=== PATIENT | male | born 1980 | race Caucasian/White ===

== ENCOUNTER 2016-11-15 11:19 | Inpatient (IN) | payer OTHER, MEDICAID ==
--- NOTE | 2016-11-15 12:02 | EDPHY ---
H & P HPI/ROS: CHIEF COMPLAINT: Altered speech HISTORY OF PRESENT ILLNESS: The patient is a 36-year-old male with reported personality disorder who presents to the emergency department with altered speech. Per the patient's , over the past week he has had periods of "distraction." He has been less talkative than normal and staring off into space. This morning at around 7:30 a.m. she noticed that he had difficulty finding words. He is normally quite talkative and this was normal. They went down to [place] to a conference. While sitting in the conference patient had difficulty writing. They drove back to [place] and the patient's brought him to [facility]. The patient states he is feeling fine. He does not feel as though he has a speech abnormality. He has no complaints of headache or neck pain. No recent fevers or chills. No trauma. No new medications. REVIEW OF SYSTEMS: My complete review of systems is negative except as mentioned in the HPI. Past Medical/Surgical History: Personality disorder Past surgical history: Denies Social history: The patient denies drug or alcohol use. The patient is . Smoking Status: Current every day smoker Physical Exam: Vitals noted GENERAL: Well-appearing, in no acute distress, alert. HEENT: Eyes normal to inspection, normal pharynx, no signs of dehydration. NECK: No thyromegaly, no lymphadenopathy, supple. RESPIRATORY: Clear to auscultation bilaterally, no rales, rhonchi or wheezing. CVS: Regular rate and rhythm, no rubs, murmurs, or gallops. ABDOMEN: Soft, nontender, nondistended, no organomegaly. BACK: Normal to inspection, no CVA tenderness. SKIN: Normal color, no rash, warm, dry. No pallor. EXTREMITIES: No pedal edema, no calf tenderness, no Homans sign or cords, no joint swelling. NEURO/PSYCH: Higher functions: Alert and Oriented x3. Slightly slow speech. He has some word -finding difficulties. He is able to articulate words well. He does not know his address or the secretary to the vice president. He is able to name objects. Normal mood and affect. Cranial nerves: Normal as tested. Cerebellar: Normal as tested. Good finger to nose, good [id number], normal gait. Peripheral exam: Normal motor exam. Normal sensation. Normal reflexes. NIHSS: 1 Best language: 1 Dysarthria: 0 Constitutional: Initial Vital Signs Temperature (C) 36.3 C 11/15/16 11:21 Heart Rate 77 11/15/16 11:21 Respiratory Rate 16 11/15/16 11:21 Blood Pressure 155/90 H 11/15/16 11:21 O2 Sat (%) 99 11/15/16 11:21 O2 Delivery Mode Room Air Allergies/Adverse Reactions: cefaclor [From Ceclor] Allergy (Verified 01/25/10 20:47) Home Medications: Medication Instructions Recorded [place] 01/25/10 Medical Decision Making - Diagnostics EKG Interpretation: EKG shows normal sinus rhythm, normal rate, normal axis, normal intervals. There are no ST or T-wave abnormalities. EKG is normal as interpreted by me. Imaging Results: Imaging Impressions Head CT 11/15/16 12:06 Impression: 1. No significant intracranial abnormality seen. Findings discussed with Carlita Guaman M.D. at 1211 hour, 11/15/2016. Head CTA 11/15/16 12:10 Impression: Normal CT angiogram of the neck. Normal CT angiogram of the [place], as detailed above. Note: All calculations were performed using NASCET criteria. Findings discussed with Carlita Guaman M.D. at 13:28 hour, 11/15/2016. Neck CTA 11/15/16 12:10 Impression: Normal CT angiogram of the neck. Normal CT angiogram of the [place], as detailed above. Note: All calculations were performed using NASCET criteria. Findings discussed with Carlita Guaman M.D. at 13:28 hour, 11/15/2016. ED Course/Re-evaluation: Patient arrived to the emergency department and was brought back to room 11. Patient was initially seen by the PA. After the PA performed his initial evaluation he came and informed me of the patient's presentation. At that time I went in assumed care of the patient and performed my evaluation. After evaluating the patient a stroke alert was called. The timing of onset of the patient's symptoms are confusing. The patient's states that he started acting normal 1 week ago. He was having long periods where he was distracted lost and thought. She 1st noticed word-finding difficulty at 7:30 a.m. this morning. The patient informed me in the emergency department that he had personality disorder. His did not know of this condition. She states they have been for 5 years. At baseline he is talkative and acts normal An IV was placed. Laboratory studies were obtained. CT was ordered. CT of the head without contrast: Please refer the dictated report by Dr. Guidry. No acute disease. Patient was evaluated by [facility] Neurology. Dr. Sanders felt he was not a candidate for tPA. Time of onset of symptoms was unclear. I rechecked the patient. He had no new focal neurologic deficits. His CT Angio of the head neck were ordered. CT angio head and neck: Please refer the dictated report. No acute disease noted. I discussed the case with Neurology Dr. Nixon. He recommended MRI of the brain. 1405: I repeated the patient's NIHSS. He still has a score of 1 for mild to moderate aphasia. I discussed case with the hospitalist service, Dr. Christian. The patient will be admitted for further observation. MRI is pending. Differential Diagnosis: My differential includes but is not limited to ischemic CVA, hemorrhagic CVA, dissection, aneurysm, electrolyte abnormality, sugar abnormality, dehydration, psychiatric disorder - Data Points Laboratory Results: Laboratory Results 11/15/16 12:00 11/15/16 12:00 11/15/16 11/15/16 11/15/16 12:04 12:00 12:00 WBC RBC Hgb POC Hgb 17.0 gm/dL gm/dL (14.5-17.3) Hct POC Hct 50 % % (42.8-50.6) MCV MCH MCHC RDW Plt Count MPV Neut % (Auto) Lymph % (Auto) [place] % (Auto) Eos % (Auto) Baso % (Auto) Nucleat RBC Rel Count Absolute Neuts (auto) Absolute Lymphs (auto) Absolute Monos (auto) Absolute Eos (auto) Absolute Basos (auto) Absolute Nucleated RBC Immature Gran % Immature Gran # PT 13.3 SEC SEC (12.0-15.0) INR 1.02 (0.83-1.16) APTT 27.8 SEC SEC (23.0-38.0) POC Sodium 143 mEq/L mEq/L (134-144) Sodium 140 mEq/L mEq/L (134-144) POC Potassium 4.0 mEq/L mEq/L (3.3-5.0) Potassium 4.2 mEq/L mEq/L (3.5-5.2) POC Chloride 105 mEq/L mEq/L (96-108) Chloride 104 mEq/L mEq/L (97-110) Carbon Dioxide 23 mEq/l mEq/l (22-31) Anion Gap 13 mEq/L mEq/L (8-16) POC BUN 12 mg/dL mg/dL (7-23) BUN 12 mg/dL mg/dL (7-23) Creatinine 0.9 mg/dL mg/dL (0.7-1.3) POC Creatinine 0.9 mg/dL mg/dL (0.8-1.5) Estimated GFR > 60 Glucose 87 mg/dL mg/dL (70-100) POC Glucose 89 mg/dL mg/dL (70-100) Calcium 10.0 mg/dL mg/dL (8.5-10.4) Troponin I < 0.012 ng/mL ng/mL (0-0.034) 11/15/16 12:00 WBC 4.87 10^3/uL 10^3/uL (3.80-9.50) RBC 5.47 10^6/uL 10^6/uL (4.40-6.38) Hgb 15.6 g/dL g/dL (13.7-17.5) POC Hgb Hct 47.1 % % (40.0-51.0) POC Hct MCV 86.1 fL fL (81.5-99.8) MCH 28.5 pg pg (27.9-34.1) MCHC 33.1 g/dL g/dL (32.4-36.7) RDW 13.5 % % (11.5-15.2) Plt Count 216 10^3/uL 10^3/uL (150-400) MPV 10.2 fL fL (8.7-11.7) Neut % (Auto) 60.4 % % (39.3-74.2) Lymph % (Auto) 31.2 % % (15.0-45.0) [place] % (Auto) 6.8 % % (4.5-13.0) Eos % (Auto) 0.8 % % (0.6-7.6) Baso % (Auto) 0.6 % % (0.3-1.7) Nucleat RBC Rel Count 0.0 % % (0.0-0.2) Absolute Neuts (auto) 2.94 10^3/uL 10^3/uL (1.70-6.50) Absolute Lymphs (auto) 1.52 10^3/uL 10^3/uL (1.00-3.00) Absolute Monos (auto) 0.33 10^3/uL 10^3/uL (0.30-0.80) Absolute Eos (auto) 0.04 10^3/uL 10^3/uL (0.03-0.40) Absolute Basos (auto) 0.03 10^3/uL 10^3/uL (0.02-0.10) Absolute Nucleated RBC 0.00 10^3/uL 10^3/uL (0-0.01) Immature Gran % 0.2 % % (0.0-1.1) Immature Gran # 0.01 10^3/uL 10^3/uL (0.00-0.10) PT INR APTT POC Sodium Sodium POC Potassium Potassium POC Chloride Chloride Carbon Dioxide Anion Gap POC BUN BUN Creatinine POC Creatinine Estimated GFR Glucose POC Glucose Calcium Troponin I Point of Care Test Results: 11/15/16 12:04 POC Sodium 143 POC Potassium 4.0 POC Chloride 105 POC BUN 12 POC Creatinine 0.9 POC Glucose 89 Departure - Departure Disposition: [facility] Inpatient Acute Clinical Impression: Aphasia Condition: Good Referrals: PAWAN ROBINS [Primary Care Provider] - As per Instructions
[2016-11-15 12:20] LABS: % IMMATURE GRANULYOCYTES 0.2 % (0.0-1.1); ABSOLUTE IMMATURE GRANULOCYTES 0.01 10^3/uL (0.00-0.10); ADD DIFF? NO; ADD MORPH? NO; ADD SCAN? NO; ATYPICAL LYMPHOCYTE FLAG 0 (0-99); FRAGMENT RBC FLAG 0 (0-99); HEMATOCRIT 47.1 % (40.0-51.0); HEMOGLOBIN 15.6 g/dL (13.7-17.5); LEFT SHIFT FLG 0 (0-99); LIPEMIA HEMOLYSIS FLAG 80 (0-99); MEAN CELL HEMOGLOBIN 28.5 pg (27.9-34.1); MEAN CELL HEMOGLOBIN CONCENTR. 33.1 g/dL (32.4-36.7); MEAN CELL VOLUME 86.1 fL (81.5-99.8); MEAN PLATELET VOLUME 10.2 fL (8.7-11.7); PLATELET CLUMPS FLAG 10 (0-99); PLATELET COUNT 216 10^3/uL (150-400); RED BLOOD CELL COUNT 5.47 10^6/uL (4.40-6.38); RED CELL DISTRIBUTION WIDTH 13.5 % (11.5-15.2)
--- NOTE | 2016-11-15 12:42 | CPEKG ---
Heart Rate: 70 RR Interval: 857 P-R Interval: 148 QRSD Interval: 92 QT Interval: 404 QTC Interval: 436 P [place]: 49 QRS [place]: 55 T Wave [place]: 7 EKG Severity - NORMAL ECG - EKG Impression: SINUS RHYTHM Electronically Signed By: Carlita Guaman 15-Nov-2016 15:25:41
[2016-11-15 12:43] LABS: INR 1.02 (0.83-1.16); PROTIME(PATIENT) 13.3 SEC (12.0-15.0)
[2016-11-15 12:44] LABS: APTT 27.8 SEC (23.0-38.0)
[2016-11-15 12:50] LABS: ANION GAP 13 mEq/L (8-16); CARBON DIOXIDE 23 mEq/l (22-31); CHLORIDE 104 mEq/L (97-110); CREATININE 0.9 mg/dL (0.7-1.3); GLOMERULAR FILTRATION RATE > 60; GLUCOSE 87 mg/dL (70-100); POTASSIUM 4.2 mEq/L (3.5-5.2); SODIUM 140 mEq/L (134-144)
[2016-11-15 13:02] LABS: TROPONIN I < 0.012 ng/mL (0-0.034)
--- NOTE | 2016-11-15 17:42 | GHP ---
[f rep st] HISTORY AND PHYSICAL DATE OF ADMISSION: 11/15/2016 CHIEF COMPLAINT: Slurred speech and difficulty writing. HISTORY OF PRESENT ILLNESS: The patient is a 36-year-old male with history of a personality disorder, presenting with difficulty speaking. He was brought in by his after having delayed speech this morning and difficulty writing. He fell and hit his head on the door yesterday at home and has felt off since then. Per his , she says that he has been spacing out over the last week. She denies any seizure-like activity. Today, he denies any overt weakness anywhere. Denies fevers, chills, and sweats. Had a mild frontal headache on the left today. No nausea, vomiting, or diarrhea. No numbness or tingling. REVIEW OF SYSTEMS: I completed a 10-point review of systems, negative except as noted in HPI. PAST MEDICAL HISTORY: Personality disorder, which is new news to his . Does have JERROD, not on CPAP. PAST SURGICAL HISTORY: Jay Jay in the left leg after a fracture. SOCIAL HISTORY: Lives in [place]. 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 Smokes at least a pack of cigarettes a day. Smokes marijuana every other day. Denies alcohol. Denies any other illicit drugs. ALLERGIES: No known drug allergies. MEDICATIONS: Herbal supplement. FAMILY HISTORY: No strokes or heart attacks. PHYSICAL EXAMINATION: VITAL SIGNS: Temperature 36.3, blood pressure of 155/90 , heart rate 70s respirations 16, 99% on room air. GENERAL: Patient is sitting up in bed in no acute distress. HEENT. PERRLA. EOMI. Oropharynx clear. CV: Regular rate and rhythm. No murmurs, gallops, or rubs. No lower extremity edema. LUNGS: Clear to auscultation bilaterally. No crackles or wheezing. ABDOMEN: Soft, nontender, nondistended. Positive bowel sounds. : No suprapubic tenderness. Musculoskeletal 5/5 upper and lower extremity strength. NEURO: 2 through 12 intact. Negative pronator drift. +2 reflex patellar and Achilles. He is slow to answer questions but does answer appropriately. Normal sensation to touch. PSYCH: Very flat affect. He is alert to place and month, not date. LABORATORY DATA: WBCs 4, hemoglobin 15, hematocrit 47, platelets 216. Coag's within normal. Sodium 143, potassium 4, chloride 105, creatinine 0.9, glucose 89. Troponin less than 0.02. ASSESSMENT AND PLAN: 1. Difficulty word finding/writing: Differential includes transient ischemic attack versus cerebrovascular accident versus infection versus psychosomatic versus intoxication. Patient with normal neuro exam. He was evaluated by Igor Parker in the emergency room with a negative CT and head and neck CTA, as well as an MRI. Upon my exam, he is still slow to answer questions. Query if this is secondary to psych disorder. Will further evaluate with a UA/U tox. He is afebrile without leukocytosis. Denies any infectious symptoms. Neurology is to consult. TTE pending. No evidence of arrhythmias on EKG. 2. Diet regular. 3. Deep vein thrombosis prophylaxis: Low risk, ambulatory. DISPOSITION: Warrants observation admission in the ACU for telemetry, echocardiogram, and neurology evaluation. /[id number]/MODL MTDD
[2016-11-15 22:08] LABS: COLOR PALE YELLOW; LEUKOCYTE ESTERASE,URINE NEGATIVE (NEGATIVE); NITRITE,URINE NEGATIVE (NEGATIVE)
[2016-11-15] MEDS ORDERED: ONDANSETRON 4 MG/2 ML VIAL IVP PRN (22:18)
[2016-11-15] MEDS: ACETAMINOPHEN 325 MG TAB PO PRN (22:27)
[2016-11-15 22:35] LABS: PHENCYCLIDINE URINE BCH < 6 ng/ml (NEGATIVE); PHENCYCLIDINE URINE BCH NEGATIVE (NEGATIVE); TETRAHYDROCANNABINOL URINE 34 ng/mL (NEGATIVE); TETRAHYDROCANNABINOL URINE NEGATIVE (NEGATIVE)
[2016-11-16 05:57] LABS: CHOLESTEROL 196 mg/dL (140-200); HIGH DENSITY LIPOPROTEIN 56 mg/dL (40-65); LDL/HDL RATIO 2.34 RATIO (1.00-3.64); LOW DENSITY LIPOPROTEIN 131 mg/dL (70-100); NON-HIGH DENSITY LIPOPROTEIN 140 mg/dL (90-129); TRIGLYCERIDE 45 mg/dL (40-150); VERY LOW DENSITY LIPOPROTEINS 9 mg/dL (8-25)
[2016-11-16] MEDS: ACETAMINOPHEN 325 MG TAB PO PRN ×2 (08:02→16:14)
--- NOTE | 2016-11-16 08:14 | HOSPPROG ---
Hospitalist Progress Note Assessment/Plan: Stroke Alert Brief Note Stroke alert called overhead for patient at about 715 am. RN reported that on her AM evaluation of the patient he had up and then abruptly fell backward into his bed, possibly had a short LOC/syncopal episode and then was aphasic for a period after this. Given the aphasia, stroke alert was called. On my arrival, patient was verbal, but slow to respond to questioning. VS: see below Gen: young m, NAD HEENT: nc/at, mmm Neck: supple, no meningismus CV: RRR, no murmurs Resp: CTA, no wheezing Abd: +BS, soft, nontender Ext: no edema; DP pulses 2+ and equal Neuro: alert, oriented to person and year only; slow to answer questions but not dysarthric, difficulty with object naming; CN II-XII grossly intact; strength 5/5 in all extremities; sensation to light touch intact Labs: noted Impr/Plan: Patient is a 36 year old male with reported history of personality/mood disorder who was admitted on 11/15 with aphasia/word-finding difficulty. Initial work up, including electrolytes, head imaging (CT and MRI) and drug screen are all unremarkable. This morning's event appears consistent with presentation symptoms. Etiology of this is unclear, CVA has apparently been ruled out with initial work up. - stroke alert cancelled - check orthostatics - f/u neurology consult Soraya Lynn DO Objective: Vital Signs Temp Pulse Resp BP Pulse Ox 36.8 C 65 15 142/84 H 99 11/16/16 08:00 11/16/16 08:00 11/16/16 08:00 11/16/16 08:00 11/16/16 08:00 11/15/16 11/16/16 11/17/16 05:59 05:59 05:59 Intake Total 400 Balance 400 PT 13.3 SEC (12.0-15.0) 11/15/16 12:00 INR 1.02 (0.83-1.16) 11/15/16 12:00 ICD10 Worksheet Patient Problems: Problems Problem Status Onset Aphasia Acute
[2016-11-16] MEDS ORDERED: Herbals/Supplements -Info Only PO SCH (09:00)
--- NOTE | 2016-11-16 09:02 | PDCONSULT ---
Hand Paint [employer]er Note: HOSPITAL NEUROLOGY CONSULT REQUESTING: Kathy Christian MD REASON: altered mental status HPI: This is a 36 year-old right-handed man with a history of "personality disorder" who presented to our ED yesterday with altered mental status. Patient has a vague history of a "personality disorder" for which he had been treated with "2 medicines" in the past, though, the patient indicates he took himself off of these medicines several years ago because "they didn't work." His is not sure about any of this as this is the first she's heard of any background of psychiatric problems. She does know he has a history of polysubstance abuse - he smokes cannabis daily and up until 4 months ago was routinely using cocaine. Patient's states over the past week he started acting "off." He was zoning out and losing concentration quickly. His verbal output diminished. He is generally talkative and conversant, but she states he seemed to be "lost in thought" most of the week. None of these zoning out spells were accompanied by any motoric activity or automatisms. She had been able to snap him out of these spells by touching him or calling his name. Yesterday they were at a conference in [place] and he started having difficulty expressing himself. Specifically, his verbal output was very slowed. At times, his thought processing seemed slow and speech tangential. He was taking notes at the conference and his states he would take a partial note then start doodling on the paper. He has not been experiencing any fevers, chills, sweats. He has not complained of a headache. He had been stating he felt a little dizzy. No indication of weakness, sensory loss, visual disturbance, gait dysfunction. No back or neck pain. He had not complained of photophobia, phonophobia, neck stiffness or hearing changes. He did bump his head on a door yesterday, but this was not forceful per his 's report, and there was no LOC. No indication of convulsive activity. When the patient arrived at our ED, a stroke alert was called but cancelled by the telestroke service, as his symptoms were not consistent with acute ischemia. He had a normal CTA head/neck. An MRI brain wo was done which showed a single punctate area of T2 FLAIR hyperintensity in the right frontal subcortical white matter, but nothing more. Screening metabolic labs, UA and UDS were unremarkable. He was admitted for observation. This morning, during bedside nursing handoff, the patient was sitting on the edge of his bed. In the middle of handoff, he abruptly lost postural tone, slumping back into the bed. He had no motoric activity. His eyes were closed. This lasted about a minute or so. He is on tele monitoring and his HR, rhythm and BP were stable. He regained awareness. Another stroke alert was called but cancelled by the hospitalist. ROS: As per the HPI, otherwise a complete 12 point ROS was performed and is negative ALLERGIES AND MEDS: As recorded in the EMR - reviewed and reconciled PFSH: As per the intake H&P by Dr. Christian from yesterday EXAM: VS reviewed in EMR GEN: WDWN laying in NAD HEENT: NCAT, sclera anicteric, conjunctiva not injected, MMM, oropharynx clear, no scalp tenderness NECK: supple, nontender, no meningismus CV: RRR s1 s2 wo m/r/c/g. Carotid pulses 2+ wo bruit NEURO: MS: awake, reduced attention, oriented to self, place, month, not year, not situation. Speech nondysarthric. Content of speech is tangential, with psychomotor slowing of verbal output. He has some word substitutions, but no other language disturbance. He can name, repeat, read. He has difficulty following commands - he will sometimes perform simple appendicular commands, but other times he just smiles without performing the requested action. Attends to both sides. Episodic memory disturbance on casual conversation. Mood somewhat agitated and withdrawn with odd affect. Unable to get a good sense of his fund of knowledge. CN: pupils 5mm round and reactive. Fundi with sharp discs. Blinks to threat OU. Primary gaze centered. Full ocular motility. Facial sensation preserved. Face symmetric. Hearing grossly intact to finger rub. Palatoglossal movements intact. Shoulder shrug and head turn strong. MOTOR: normal bulk/tone. No adventitial movements. Full power throughout. SENSORY: intact LT/PP throughout. No extinction. COORD: no ataxia FN/HS. Parker robotic. REFLEX: plantars down. No clonus. DTRS 2/4. GAIT: deferred to PT safety eval DATA REVIEW: Labs reviewed in EMR PERSONALLY INTERPRETED RESULTS AND DATA: MRI brain wo - as per the HPI CTA head/neck - patent intra/extracranial vessels IMPRESSION AND RECOMMENDATIONS: // ENCEPHALOPATHY // HX PSYCHIATRIC DISORDER // HX POLYSUBSTANCE ABUSE Patient with altered mental status. Workup to date has been unremarkable. Given exam and history, suspect this is more primary psychiatric. 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 Unsure what his specific psychiatric background is, but he has not been forthcoming with his about this. Has a history of substance abuse - UDS is neg, but not sure if he has any ingestion not screened on UDS or more recent ingestion of a toxin that clears quickly. Will complete neurologic workup by sampling CSF - will screen for any inflammatory/infectious etiologies. Comprehensive labs will be ordered, including PNP - this may take upwards of 10-14 days to return. If CSF profile is noninflammatory/noninfectious, HSV PCR is neg, then I think he can be discharged with psychiatry followup. May benefit from mood stabilizing medication in the interim, such as valproic acid. Would be ideal to get records regarding his prior psychiatric history and presentation. I would see him in clinic in 2 weeks to review the pending labs.
[2016-11-16] MEDS ORDERED: LIDOCAINE 1% 300 MG/30 ML SDV ONE (10:45)
[2016-11-16 12:49] LABS: PROTEIN, CSF 51 mg/dL (12-60)
[2016-11-16 12:52] LABS: CSF APPEARANCE CLEAR (CLEAR); CSF COLOR COLORLESS (COLORLESS); CSF SUPERNATANT COLORLESS (COLORLESS); WBC, CSF 0 /mm3 (0-5)
--- NOTE | 2016-11-16 14:14 | HOSPPROG ---
Hospitalist Progress Note Assessment/Plan: 36y male with c/o confusion. This is my first encounter. Chart reviewed. D/W CM and Dr Bowers. #AMS unclear etiol likely psych in nature will get psych consult LP done today follow labs appreciate neurology #Hx polysubstance abuse none recently per pt's #Encephalopathy better, cont eval #Dispo unclear, follow labs will get psych consult Subjective: No specific issues. No pain. at bedside. Objective: Vital Signs Temp Pulse Resp BP Pulse Ox 36.8 C 71 16 144/77 H 97 11/16/16 13:27 11/16/16 13:27 11/16/16 13:27 11/16/16 13:27 11/16/16 13:27 Microbiology 11/16/16 11:45 Gram Stain - Final Cerebral Spinal Fluid 11/15/16 11/16/16 11/17/16 05:59 05:59 05:59 Intake Total 400 Balance 400 PT 13.3 SEC (12.0-15.0) 11/15/16 12:00 INR 1.02 (0.83-1.16) 11/15/16 12:00 - Physical Exam Constitutional: no apparent distress, appears nourished, not in pain Eyes: PERRL, anicteric sclera, EOMI Ears, Nose, Mouth, Throat: moist mucous membranes, hearing normal, ears appear normal Cardiovascular: No JVD, No tachycardia, No edema Respiratory: no respiratory distress, no rales or rhonchi, reduced air movement Gastrointestinal: No tenderness, No ascites, No guarding Skin: warm, normal color, No erythema Musculoskeletal: normal joint ROM, no joint effusions, generalized weakness Psychiatric: poor insight, poor judgement, poor memory, No interacting appropriately ICD10 Worksheet Patient Problems: Problems Problem Status Onset Aphasia Acute
--- NOTE | 2016-11-17 08:39 | NEUROPROG ---
Assessment: INTERVAL HISTORY: No events overnight. Still acting confused and suspicious of staff with odd behaviors and abnormal content of speech. EXAM: VS reviewed in EMR MS: still disoriented to date. Still with odd affect, agitated at times, very apprehensive about staff in room. Speech still slowed and tangential. Able to name, repeat and read. Still with gross episodic memory disturbance. CN: PERRLA, VFF, horizontal eye movements intact, face symmetric, facial sensation preserved, palatoglossal movements intact, shoulder shrug intact MOTOR: normal bulk/tone. Full power throughout. No adventitial movements. Psychomotor slowing. SENSORY: endorses symmetric LT. No extinction. COORD: no gross ataxia - wont participate in FN/HS testing REFLEX: plantars down, no clonus, DTRs 2/4 GAIT: seen ambulating from bathroom with slowed, but normal gait pattern DATA REVIEW: Labs reviewed in EMR CSF profile noninflammatory. WBC 0; RBC 0; Glu 60; Prot 51; Cx no cells, no organisms, NGTD CSF PNP, JONH, WNV, IgG synth, Oligoclonal bands, VDRL, HSV, cytology pending PERSONALLY INTERPRETED RESULTS AND DATA: MRI brain wo - single punctate focus of increased T2 FLAIR signal in the right frontal subcortical white matter CTA head/neck - patent intra/extracranial vessels IMPRESSION AND RECOMMENDATIONS: // ENCEPHALOPATHY - SUSPECT PRIMARY PSYCHIATRIC // HX PSYCHIATRIC DISORDER // HX POLYSUBSTANCE ABUSE Patient with altered mental status. Workup to date has been unremarkable. Given exam and history, suspect this is more primary psychiatric. 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 Unsure what his specific psychiatric background is, but he has not been forthcoming with his about this. Has a history of substance abuse - UDS is neg, but not sure if he has any ingestion not screened on UDS or more recent ingestion of a toxin that clears quickly. Second stroke alert episode on 11/16 with abrupt onset loss of postural tone, eye closure and impaired awareness sounds nonepileptic and nonphysiologic (was on monitor with stable vitals arguing against a physiologic process of loss of cerebral perfusion, and loss of tone with eye closure argues against a seizure). CSF profile is noninflammatory/noninfectious - that is to say no WBCs, no RBCs and no proteinoracchia or glucose abnormality. Comprehensive labs will be ordered, including PNP - this may take upwards of 10-14 days to return. If CSF HSV PCR is neg, then I think he can be discharged with psychiatry followup. May benefit from mood stabilizing medication in the interim, such as valproic acid. Would be ideal to get records regarding his prior psychiatric history and presentation. I would see him in clinic in 2 weeks to review the pending labs. Objective: Vital Signs Temp Pulse Resp BP Pulse Ox 36.7 C 79 16 112/87 H 98 11/17/16 07:21 11/17/16 07:21 11/17/16 07:21 11/17/16 07:21 11/17/16 07:21 11/16/16 11/17/16 11/18/16 05:59 05:59 05:59 Output Total 450 Balance -450 PT 13.3 SEC (12.0-15.0) 11/15/16 12:00 INR 1.02 (0.83-1.16) 11/15/16 12:00 Allergies/Adverse Reactions: cefaclor [From Ceclor] Allergy (Verified 01/25/10 20:47)
[2016-11-17] MEDS ORDERED: OLANZapine DISINTEGR 5 MG TAB PO ONE (13:13)
[2016-11-17] MEDS ORDERED: OLANZapine DISINTEGR 10 MG TAB PO ONE (13:25)
[2016-11-17] MEDS ORDERED: LORazepam 1 MG TAB PO PRN (13:26)
[2016-11-17 14:37] LABS: VDRL CSF Negative (Negative)
--- NOTE | 2016-11-17 15:11 | HOSPPROG ---
Hospitalist Progress Note Assessment/Plan: 36y male with c/o confusion. D/W Dr Yang, psychiatry. #AMS unclear etiol likely psych in nature LP done, normal. HSV pending, send out follow labs appreciate neurology pt has a history of bipolar disorder off meds #Hx polysubstance abuse none recently per pt's #Encephalopathy better, cont eval #Dispo rec inpt psych admit medically clear Subjective: wants to leave. Anxious. Objective: Vital Signs Temp Pulse Resp BP Pulse Ox 36.7 C 79 16 112/87 H 98 11/17/16 07:21 11/17/16 07:21 11/17/16 07:21 11/17/16 07:21 11/17/16 07:21 11/16/16 11/17/16 11/18/16 05:59 05:59 05:59 Output Total 450 Balance -450 PT 13.3 SEC (12.0-15.0) 11/15/16 12:00 INR 1.02 (0.83-1.16) 11/15/16 12:00 - Physical Exam Constitutional: appears nourished, not in pain, chronically ill appearing Eyes: PERRL, anicteric sclera, EOMI Ears, Nose, Mouth, Throat: moist mucous membranes, hearing normal, ears appear normal Cardiovascular: No JVD, No tachycardia, No edema Respiratory: no respiratory distress, no rales or rhonchi, reduced air movement Gastrointestinal: No tenderness, No ascites, No guarding Skin: warm, normal color, No erythema Musculoskeletal: full muscle strength, no joint effusions, generalized weakness Neurologic: AAOx3 Psychiatric: anxious, poor insight, poor judgement, poor memory, No interacting appropriately, No thought process linear ICD10 Worksheet Patient Problems: Problems Problem Status Onset Aphasia Acute
[2016-11-17 16:36] VITALS: BP 138/95; PULSE 68; RESP 17; TEMP 98.6; O2SAT 95
--- NOTE | 2016-11-17 16:52 | BCON ---
[f rep st] BEHAVIORAL HEALTH CONSULTATION Duplicate /[id number]/MODL MTDD
--- NOTE | 2016-11-17 17:18 | BCON ---
[f rep st] BEHAVIORAL HEALTH CONSULTATION DATE OF CONSULTATION: 11/17/2016 REFERRING PHYSICIAN: Harmony Jones NP REASON FOR CONSULTATION: Evaluate for possible underlying psychiatric illness causing current altered speech and behavior HISTORY OF PRESENT ILLNESS: The patient is a 36-year-old male who was brought to the Emergency Department by his on 11/15/2016 with complaint of altered speech and difficulty communicating, having over the prior week experienced periods of "distraction," less talkative than normal, and staring off into space. On the morning of presentation, noted the patient had difficulty with word finding, and later in the day had difficulty writing. did not know of any previous psychiatric history, and brought him to the [facility] for evaluation. The patient was admitted for observation and Neurology was consulted. He had a full workup including CT of head without contrast, CT angio of head and neck, brain MRI, lab work, as well as lumbar puncture. Stroke alert had been called twice due to his symptoms, but then canceled. Neurology did not feel that patient's exam and symptoms were consistent with any acute ischemic event, and extensive medical workup was negative, although LP results are still pending and final results will not be received for 10-14 days. Urine toxicology screen upon admission was negative. Mother arrived to hospital and provided history that patient had a diagnosis of bipolar mood disorder, and has had 3 prior similar episodes requiring psychiatric hospitalization. was unaware of any psychiatric diagnosis or past treatment, despite knowing the patient for 5 years and having been to him for the past 2 years. He does have a history of polysubstance abuse. MENTAL STATUS EXAMINATION: On evaluation, the patient was sitting in hospital bed, with bed alarm on per nursing since patient was on a detainer and at times would get up and just wander out. Behavior was cooperative, calm and controlled , with no abnormal movements noted. Eye contact was good, but patient seemed to be staring intensely and as if trying to concentrate hard on interview and present well. Seemed with slow processing speed. Speech was at times articulate , at times was only partial words or syllables. Speech volume was normal. Rate was normal when he did speak in fluent sentences. Affect was blunted/ flattened, although did become briefly tearful apparently spontaneously which resolved quickly. He was unable to state his mood, except at one point stated he felt terrible. He had notable thought blocking, possibly distracted by internal stimuli, and responses were disorganized and illogical and not always in response to question asked. He did not appear to be responding to any visual hallucinations. He did not answer as to whether he was hearing voices or not, responding instead "I think YOU have voices." Thought processes were illogical and disorganized, and patient would at times respond in the affirmative and negative. He denied having any suicidal ideation or thoughts to harm others "never." He seemed to have awareness of not thinking clearly, but seemed to try very hard to present himself as well. He has no insight into need for medication, and did eventually state "I am getting tired of these questions." Other times he was nonresponsive to questions which needed to be asked several times. Regarding orientation questions: States he is in the "hop...i...tel" and year was "1985," and date was "November... ", and "" (correct date 11/17). Then he stated he was at "[facility]... ask [employer] who owns the hospital." He was not able to state why he was in the hospital except "I bumped my head on a door...blackout," which did not seem to be part of the history. Regarding any recent drug and alcohol use, the patient responded "yeah...no" and if smoked marijuana or used edibles, stated "not with you." At one point he blurted out, "It's the shit I took," possibly referring to substances used, as reported he does have a history of substance use. Of note, did report that over the past month at least, patient has been more stressed and somewhat depressed, decided earlier this week that they should go on a vacation on Sunday (tomorrow) and had plans to go to [place]. notes that he has been smoking a lot of cigarettes over the past 2 months, and stopped his episodic cocaine and heroin use 2 months ago. No history reported of IV drug abuse, and patient does use marijuana and possibly recent edibles, noting that someone who moved in recently uses edibles. She reports over the past week he has had periods of being "out of it" and more confused, and thought he was just "too high" regarding substance use. Again, she reiterated she did not think he had been using any "hard drugs" in at least 1-2 months. Over the past month, she does recall patient has at times asked her "did you hear that?," and there were no sounds. Also states he had put barricades against the door, having some paranoid ideation it seems. 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 PAST PSYCHIATRIC HISTORY: As noted above. Per mother, patient has been diagnosed with bipolar mood disorder, and has been psychiatrically hospitalized 3 times, twice in [place] (2006, and 2007 or 2008) at [facility] , and once in [place] 2010 where he was escorted off a plane due to confusion and inability to communicate or follow instructions. At that time he was hospitalized for almost [address] Hobbs had been his psychiatrist in [place] , and diagnosed patient with BMD. Most recent medications from 2010 include [place] 600mg bid, Zyprexa 15mg qhs, and lorazepam 1mg bid, but apparently patient has not been compliant with these for several years. SAFETY: Per mother and , the patient has no known history of harm to self or others, and has never been aggressive or violent. Mother does not know of any episodes of seclusion or restraints during prior hospitalization. The patient also did deny any thoughts to harm self or others when asked. SUBSTANCE USE HISTORY: No history of IV drug abuse per . Patient has also insignificant history of alcohol. He has in the past occasionally use cocaine and heroin; she thinks he stops using completely 2 months ago, but has been smoking cigarettes much more frequently over the past 1-2 months. Apparently, the patient has also tried hallucinogens and does use marijuana occasionally, and may have been using edibles recently. His reports that patient has been seeking help through alternative medicine, most recently pursuing an evaluation "[facility]," also has visited a shaman twice. Mother speculates whether patient has been attempting to treat himself, recognizing something was wrong, but not wanting to acknowledge any mental illness. FAMILY PSYCHIATRIC HISTORY: Per mother (Lyly) who is a order administrator, she denies any mental health history on her side of the family or his father's. SOCIAL HISTORY: The patient is a [employer] graduate in international relations, has traveled extensively and does speak Ivorian fluently. 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 He has been together with his current for 5 years, x2 years, no children. PAST MEDICAL HISTORY: No acute issues. As noted in HPI. Urine toxicology screen negative. Brain MRI unremarkable. Notable for only single punctate focus of increased T2 FLAIR signal in right frontal subcortical white matter. Head and neck CTA both within normal limits. EKG normal. Head CT negative. CSF with no evidence for her inflammation or infection. LP testing results otherwise pending. Mental status exam on evaluation as noted in HPI. IMPRESSION: Patient is a 36-year-old, male, with a prior psychiatric history of psychotic episodes presenting similar to current presentation which had in the past necessitated psychiatric admission for stabilization. Patient was admitted with altered speech and difficulty communicating, with apparent thought blocking and disorganized speech, negative urine drug screen although does have a history of substance use and it is possible he could have used substances that were not detected by drug screen or used substances that were cleared quickly. Patient has undergone a thorough medical workup with neurology consultation and he was medically cleared. Given history from mother that he has presented similarly in the past, do suspect this is psychosis and patient will need inpatient psychiatric hospitalization for treatment. DIAGNOSIS: Unspecified psychosis, Rule out Bipolar mood disorder with catatonic features, rule out schizoaffective disorder bipolar type, acute exacerbation, rule out substance induced psychosis. Cannabis use disorder, unspecified. History of cocaine and heroin use, unspecified. PLAN: Will recommend inpatient psychiatric admission for stabilization and treatment. Patient be placed on M1 hold prior to transfer to inpatient psychiatric unit, for grave disability. He is currently on a detainer. We will offer 10 mg of Zyprexa Zydis p.o. x1 and start lorazepam 1 mg p.o. q.6 hours p.r.n. pending evaluation by [facility] for inpatient psychiatry admission. Lorazepam will be helpful for catatonic-like features. Per mother, patient did well with zyprexa, lithium and ativan in the past, and would more likely be compliant with this neuroleptic. Thank you for this interesting consult. /[id number]/MODL MTDD
--- NOTE | 2016-11-17 18:43 | GDS ---
[f rep st] DISCHARGE SUMMARY DISCHARGE DIAGNOSES: 1. Acute encephalopathy. 2. Unspecified psychosis. STUDIES/PROCEDURES DONE: 1. CT of the head. 2. CT angio of the head and neck. 3. MRI of the brain. 4. Lumbar puncture. CONSULTATIONS: 1. Neurology. 2. Psychiatry. PHYSICAL EXAM: GENERAL: The patient is alert. VITAL SIGNS: Afebrile at 37, pulse is 68, respirat ory rate 17, blood pressure is 138/95. He is saturating 95% on room air. I have seen and evaluated the patient on the day of discharge. HOSPITAL COURSE: The patient is a 36-year-old male, who presented to the hospital with concerns for confusion. He was evaluated and diagnosed with: 1. Undiagnosed psychosis. The patient has a history of a psychiatric disorder. He has been evaluat ed by Psychiatry, and will be admitted to the inpatient psychiatry unit for further management of hi s disorder. 2. Acute encephalopathy. This is likely secondary to the patient's underlying psychiatric disease process. He has been thoroughly evaluated and medically cleared. He does have laboratory evaluatio ns pending from his lumbar puncture, that will require a followup in 7-10 days. DISPOSITION: The patient will be discharged to Inpatient Psychiatry for further recommendations and treatment of his underlying condition. Follow up will be with his primary care physician, as well as a psychiatrist of his choice. DISCHARGE MEDICATIONS: None. I spent greater than 35 minutes in the care, coordination, and management of the patient's discharge , in coordination with Psychiatry and Case Management. /[id number]/MODL
[2016-11-18 14:52] LABS: MISCELLANEOUS TEST See Comments
[2016-11-20 14:02] LABS: LYME ANTIBODY Negative (Negative)
[2016-11-20 15:53] LABS: ANGIOTENSIN CONVERT ENZYME CSF 0.9 U/L (0.0-2.5)
== END 2016-11-17 18:27 | DRG 885 ==
LOC: F3N 20:05 → OBSVTOIN 11-16 14:16
PROVIDERS: ADMIT Internal Medicine; ATTEND Family Medicine
PROC: 009U3ZX Drainage of Spinal Canal, Percutaneous Approach, Diagnostic (ICD-10-PCS; principal; 2016-11-16)
DX: F23 Brief psychotic disorder (principal)
CPT/HCPCS: 80307; 82164-90; 82784-90; 82947-QW; 83520-90; 83916-90; 86256-90; 86592-90; 86618-90; 87529-90; 92523-GN; G0378; G0480; G9159-GN-CJ; G9160-GN-CI

== ENCOUNTER 2016-11-17 18:50 | Inpatient (IN) | payer OTHER, MEDICAID ==
[2016-11-17] MEDS ORDERED: NICOTINE POLACRILEX 2 MG GUM B PRN (20:24)
[2016-11-17] MEDS ORDERED: MAGNESIUM HYDROXIDE 30 ML UDCUP PO PRN (20:24)
[2016-11-17] MEDS ORDERED: MAG HYDROX/AL HYDROX/SIMETH 30 ML UDCUP PO PRN (20:24)
[2016-11-17] MEDS: OLANZapine DISINTEGR 10 MG TAB PO SCH (22:21)
[2016-11-18] MEDS: OLANZapine DISINTEGR 5 MG TAB PO SCH (09:37)
[2016-11-18] MEDS: ACETAMINOPHEN 325 MG TAB PO PRN ×2 (11:52→19:16)
[2016-11-18] MEDS: OLANZapine DISINTEGR 5 MG TAB PO PRN (11:52)
[2016-11-18] MEDS: LORazepam 0.5 MG TAB PO PRN ×2 (11:53→21:27)
[2016-11-18] MEDS: OLANZapine DISINTEGR 10 MG TAB PO SCH (19:20)
--- NOTE | 2016-11-18 19:41 | SOAPPROG ---
SOAP Progress Note Assessment/Plan: Assessment: 36yo with BMD presented in catatonic-like state, with full medical/neuro w/u which was neg, until determined dx was psych and pt had 3 times prior experienced similar sxs resulting in inpt psych admission. Interviewed, also t/w and mother again. pt known to me from inpt psych consultation yesterday Started on zyprexa and ativan, which he has been agreeable, with 's support , to take Cont on M1 Admit dictation to follow Dx: BMD, with catatonic features Objective: Vital Signs Temp Pulse Resp BP Pulse Ox 36.5 C 66 11 L 125/77 H 100 11/18/16 13:48 11/18/16 13:48 11/18/16 13:48 11/18/16 13:48 11/18/16 13:48 - Pending Discharge Pending Discharge Within 24 Hours: No Pending Discharge Within 48 Hours: No ICD10 Worksheet Patient Problems: Problems Problem Status Onset Aphasia Acute
[2016-11-19] MEDS: LORazepam 0.5 MG TAB PO PRN ×3 (08:07→22:23)
[2016-11-19] MEDS: OLANZapine DISINTEGR 5 MG TAB PO SCH ×2 (08:07→19:42)
[2016-11-19] MEDS: ACETAMINOPHEN 325 MG TAB PO PRN ×2 (13:35→22:24)
[2016-11-19] MEDS: OLANZapine DISINTEGR 5 MG TAB PO PRN (13:36)
[2016-11-19] MEDS: IBUPROFEN 800 MG TAB PO PRN (19:43)
[2016-11-19] MEDS: LORazepam 1 MG TAB PO SCH (19:43)
--- NOTE | 2016-11-20 00:49 | BAPA ---
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 had no knowledge of patient's prior history of bipolar mood disorder, and was concerned for patient's altered cognition and inability to communicate through speaking, and later writing over the course of the day. Patient had a full medical and neurologic workup including a stroke workup, with Neurology consultation and testing, including brain imaging, lumbar puncture, CT head and neck angiogram. Workup was negative. Urine toxicology screen was negative. Twice, due to his clinical presentation, a stroke alert was called while in the hospital, but subsequently canceled. Information provided by mother included that patient had presented this way 3 times previously, and required psychiatric hospitalization, and was been diagnosed with bipolar disorder. The patient was seen by this psychiatrist as consultation on 11/17/2016, and subsequently placed on a 72-hour mental health hold, and recommended for inpatient psychiatric admission. On evaluation for Behavioral Health consultation, patient was unable to answer any questions in any meaningful manner. He appeared to have thought-blocking, and speech varied from briefly fluent and articulate to monosyllabic and nonsensical or entirely nonresponsive to any questions and mute for periods of time. He stared intensely, became spontaneously tearful briefly but then mostly had blunted affect, and notably was thought blocking, staring, with slow processing speed, possibly internally distracted, and verbal responses when he did respond were disorganized, illogical. did give history that when patient did appear altered or internally distracted, she just thought he was "high" and using substances, but stated he had not used any hard drugs in at least 1 month, such as cocaine or heroin. He did continue with marijuana use, and may have been using eatables recently, although it was unclear. The also states he had been seeking help through alternative medicine including visiting [facility]. Mother speculated whether patient was trying to treat himself, recognizing something was wrong, but not wanting to acknowledge any mental illness. Per , over the past month, the patient has seemed more under stress and depressed. A friend reported the patient has been having numerous ideas and business plans, and having difficulty organizing himself. did state over the past week prior to admission, the patient has had more periods of being " out of it," more confused, and at times had asked "did you hear that," and there were no sounds. Such comments actually occurred over the past month, and patient at times placed barricades against the door, expressing some paranoid ideation and suspiciousness. PAST PSYCHIATRIC HISTORY: As noted above. According to mother, the patient was diagnosed with bipolar mood disorder, with a first psychotic episode and hospitalization in 2006, and again in 2007 or 2008 in [facility] Inpatient Psychiatry. Outpatient psychiatrist was Dr. Hobbs. He was also psychiatrically hospitalized in [place] in 2010, having a similar episode of nonresponsiveness on an airplane, and needing to be escorted off, and brought to the hospital for evaluation. At this time, he was diagnosed with schizoaffective disorder, and discharged on lithium 600 mg twice daily, Zyprexa 15 mg at bedtime, and lorazepam 1 mg p.o. twice daily, but has not been taking any medication, at least and possibly for several years now. There is no history of prior harm to self or others, and family has known patient to ever be threatening or dangerous. Mother was not aware of any history of seclusion or restraint episodes during previous hospitalizations. The patient also denied any thoughts to harm himself or others when asked. SUBSTANCE USE HISTORY: reports no history of IV drug use. No significant history of alcohol use, just episodic. Has occasionally used cocaine and heroin , but thinks he has not been using for the past 1-2 months, but has been smoking more marijuana and more cigarettes over the past month. The patient has also tried hallucinogens in the past. He may have been using edibles recently, but this is unclear. reports the patient has been seeking help through alternative medicine and natural therapies, most recently pursuing evaluation at "[facility]" and has also visited a Sh[facility] twice. FAMILY PSYCHIATRIC HISTORY: No known mental health history per mother, who is a machine gun mechanic and reports having researched this. SOCIAL HISTORY: Patient is a [employer] graduate in international relations. He has traveled extensively, and does speak Turkish fluently. is [place], and he has been working on trying to get her family out of [facility]. They have been for 2 years, and known each other for 5 years. 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 No children. ADMISSION LABS: On 11/15/2016, were unremarkable. Chemistry panel was normal. Hematology was within normal limits. Urine drug screen was negative. Urinalysis was negative, except 1+ ketones. Lumbar puncture serum testing is pending. MENTAL STATUS EXAM: On admission, the patient was casually dressed, cooperative , and behavioral control, with fair eye contact. Reported mood as feeling "stupendous...not really." Affect was blunted. Speech was halting, with evidence of thought blocking. Slowed processing speed. The patient denied current auditory hallucinations or visual hallucinations. He did endorse racing thoughts, and was able to state that "half the time," he understands what others are saying to him. He then did endorse experiencing auditory hallucinations "for 1 minute" prior to hospitalization, but otherwise seemed very guarded about any psychotic symptoms. With further questioning, he admitted to hearing voices of "screaming," that there were "a lot of voices," which were unfamiliar and unintelligible. He indicated these voices were prior to admission and not present. He was able to state that he felt "misplaced in reality" at present, things were "hard to remember." His thoughts were disorganized and illogical at times. Orientation questions were notable for "July,November 2016, date as "" and "Sunday." He was oriented to presently "sitting in the hospital, occupational hospital," and when asked why he was in the hospital, he responded "to meet with you...mental therapy." Of note, present responses were significantly improved from consultation one day earlier on medical unit. Regarding mood, he stated he was "not depressed per se ," then added "very sad is an under statement." Questions around appetite, initially he understood "apple in the desert?" Responses were also contradictory, as noted, and when asked about energy level, he states he has been feeling on the "high and low side," stating "that means I could stand up and walk around." He admits sleep has recently been "too little...because too much mental stimulation." Physically complained of a headache, which he stated was "better " now. IMPRESSION: A 36-year-old male with previous history of a bipolar mood disorder, not on any medication for several years, but similar catatonic- like presentation necessitating psychiatric hospitalization three times in the past since 2006, most recently in 2010. The patient also has a history of substance use. It is unclear the amount, and he has tried several drugs in the past, but drug use does not seem to be a current factor in his presentation, as reports he has been not using any recently, rather just smoking cigarettes heavily, and attempting to seek alternative medicine therapies to treat his symptoms. It seems he has been increasingly manic over the past month, as he does endorse racing thoughts and recent difficulty sleeping, and collateral also indicates patient has been having several business ideas and difficulty organizing himself, also with auditory hallucinations and paranoia. He has historically been very resistant to traditional psychiatric medication, per mother, although he did agree to take Zyprexa and lorazepam. He is improved from initial presentation, but still significantly impaired. DIAGNOSIS: Bipolar mood disorder, with catatonic features. rule out schizoaffective disorder, rule out substance induced psychosis. Cannabis use disorder, unspecified History of cocaine and heroin use, unspecified PLAN: Admit to [address] [place] [address], safety precautions, continue M-1 hold. Start Zyprexa 10 mg p.o. at bedtime, and 5 mg p.o. twice daily p.r.n. psychosis. Lorazepam 1 mg p.o. q.4 hours p.r.n.; administer with Zyprexa for catatonia maybe to schedule regularly for catatonic features as indicated, patient already is showing some improvement after starting lorazepam and Zyprexa over the past 24 hours. Patient does not want to take lithium. No acute medical issues; however , the patient has reported a headache at times. Will medicate with p.r.n. Tylenol and monitor for any concerns of post LP headache. Did encourage presence in milieu and group attendance as able. Family very supportive, and continues to visit regularly. Will need to re-establish outpatient mental health care in the community once stable for discharge. Given history and patient seeking alternative treatments, suspect the patient will be at high risk for discontinuing medications as an outpatient. Will need education around mental illness, and need for continued treatment. Both and mother support mental health treatment, and patient's medication compliance. /[id number]/MODL MTDD
--- NOTE | 2016-11-20 05:40 | SOAPPROG ---
SOAP Progress Note Assessment/Plan: Assessment: 36yo with BMD presented in catatonic-like state, with full medical/neuro w/u which was neg, until determined dx was psych and pt had 3 times prior experienced similar sxs resulting in inpt psych admission. Dx: BMD with catatonic features 11/19/16 15:24 per staff, pt slept 9hr. continues with disorganized behaviors and speech. hesitating around taking medication this am. Met with patient who was completing lunch alone in dining room. States headache (reported this to family, and given med by [facility] [place] as prn) "is almost gone". Recently awakened from nap. On interview, patient calm, cooperative, no abnormal movements, casually dressed , still with illogical, disorganized speech, and difficulty communicating, but more fluent. No thoughts to harm self/others. No responding to VH. Denied any AH and did not recall reporting any yesterday although he did. Loose thoughts, incorporating "cucumber" illogically into response after glancing down at plate (cucumbers were present). When asked about medication, "I need it, but can't get the right combination, it's not working, the dosage of the cucumber..."(I questioned if he meant Zyprexa) "the zyprexa is actually a decent drug for a certain type of person..." Asked if he feels he has BMD, "the truth is, I can't imagine what it's like if I don't have bipolar..." Randomly asks, "How's the scorecard?" and occasionally was with neologisms. PLAN: continue Zyprexa 5/10 and 5mg bid prn, with Ativan 1mg q4hr prn cont on M1 11/19/16 19:42 Family expressed concerns about pt reporting "excruciating headache". Patient consistently had minimized or denied when asked previously. Reported doing so "because I want to go home...go see a natural doctor" Admits positionally exacerbated. Also became extremely agitated when informed he would likely not be psychiatrically stable enough for d/c tomorrow at end of M1. "but I have 15,000 things to do!" Family assisted in calming and reassuring patient, also in taking meds. Plan: -Contacted neurology on-call Dr. Nixon (who knows patient from recent inpatient medical stay), recommended first line of tx for post LP H/A is caffeine (1 cup tall [employer] for 240mg) + NSAIDs. If not improved in 48hrs, would need blood patch. Informed pt and family. Ibuprofen 800mg x 1 now and q8hr prn. Caffeinated coffee 1-2 in AM with Ibuprofen prn if with AM headache, and monitor -Incr zyprexa 10/30, and schedule Ativan 1mg BID, cont prns Objective: Vital Signs Temp Pulse Resp BP Pulse Ox 36.5 C 63 14 123/67 H 94 11/19/16 06:00 11/19/16 06:00 11/19/16 06:00 11/19/16 06:00 11/19/16 06:00 - Time Spent With Patient Time Spent With Patient: 35min - Pending Discharge Pending Discharge Within 24 Hours: No Pending Discharge Within 48 Hours: No ICD10 Worksheet Patient Problems: Problems Problem Status Onset Aphasia Acute
[2016-11-20] MEDS: OLANZapine DISINTEGR 5 MG TAB PO SCH ×2 (09:00→21:22)
[2016-11-20] MEDS: LORazepam 1 MG TAB PO SCH ×2 (09:00→21:22)
[2016-11-20] MEDS: IBUPROFEN 800 MG TAB PO PRN (09:30)
[2016-11-20] MEDS: LORazepam 0.5 MG TAB PO PRN ×2 (12:49→23:19)
[2016-11-20] MEDS: OLANZapine DISINTEGR 5 MG TAB PO PRN (12:51)
[2016-11-20] MEDS: ACETAMINOPHEN 325 MG TAB PO PRN (12:51)
--- NOTE | 2016-11-20 13:06 | SOAPPROG ---
SOAP Progress Note Assessment/Plan: Assessment: Plan: 11/20/16 13:07 Remains psychotic. No clear catatonia at this point, though he is disorganized. Will therefore continue Zyprexa for now, monitor closely for signs of catatonia. Subjective: Pt seen, discussed with staff and Dr. Yang, chart reviewed. He is a 36 y/o CM with history of Bipolar D/o with psychosis. He has experienced a recurrent psychotic episode in the setting of being off of all medications and using multiple substances inc: cannabis. Today, he is engaging and addresses me by name. He c/o a h/a, "like electrical shocks." He has reported this for several days since having and LP. It is not constant, coming and going through the day. He notes some relief from ibuprofen. He is unable to identify any psychiatric or mental health needs. He is unaware of any previous psychiatric diagnoses. He struggles to communicate effectively with frequent blocking and derailment. Objective: Vital Signs Temp Pulse Resp BP Pulse Ox 36.5 C 63 14 123/67 H 94 11/19/16 06:00 11/19/16 06:00 11/19/16 06:00 11/19/16 06:00 11/19/16 06:00 MSE: Moderately anxious, coop. Affect is blunted, stable. Mood is "bad." TP disorganized with frequent blocking and derailment. TC reveals poverty of thought. A&Ox3. A/C are marginal. - Time Spent With Patient Time Spent With Patient: 25" - Pending Discharge Pending Discharge Within 24 Hours: No Pending Discharge Within 48 Hours: No ICD10 Worksheet Patient Problems: Problems Problem Status Onset Aphasia Acute
--- NOTE | 2016-11-20 18:40 | GCON ---
[f rep st] CONSULTATION NEUROLOGY CONSULTATION The patient is a 36-year-old gentleman who I am asked to see in neurologic consultation regarding he oscar. He was seen by my partner during his initial hospitalization for acute care evaluation on J une 1. The details of that hospitalization are in the chart, but basically, he came in with diminis hed concentration, attention and verbal output. He had workup for possible ischemic issues, but was not found to have stroke and was not felt to have TIA. They did brain imaging with MRI and lumbar puncture, which was unremarkable for any evidence of encephalitis. Some paraneoplastic antibodies a re still pending to look for more obscure causes of altered mental state, but is felt to be relative ly unlikely at this stage. Some episodes of altered interaction were felt more consistent with none pileptic phenomena than epileptic phenomena. The patient was transferred to the inpatient psych ser vice on a voluntary basis. He has been complaining of some headache and says that it comes and goes and is getting a little bit better. It was somewhat worse when he is upright, but is certainly not severe at this point. He just took a nap and woke up and said that it is very mild in general. Pa rt of what I was being asked was about whether there might be a post LP headache component. PAST MEDICAL HISTORY: Apparently notable for bipolar disease, for which there is mention that the p miguel's mother had said he has had 3 hospitalizations on inpatient psych. The patient only tells enrique french that he was admitted once several years ago and benefitted from inpatient psych evaluation and the n started to describe being briefly on Zyprexa, but figuring out on his own that that drug was causi ng a problem and then getting better. He tells me that he has been generally doing well otherwise. 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 He describes working with a partner and then going independent. He says he does not drink alcohol. He has history of smokin g cigarettes, but reportedly stopped smoking cigarettes and says he has smoked some marijuana, but i s trying to stop that. There is mention of cocaine use in the past and I inquired about that. Leeann herr he was fairly vague on that, but admitted that he has smoked cocaine, but I asked the last meghann e and he said several years ago. He did not have any positive findings on his drug screen. ALLERGIES: Ceclor. MEDICATION: Currently is Tylenol, lorazepam 1 mg twice a day scheduled, some Zyprexa 15 mg at night and 5 mg daily with a 5 mg b.i.d. as needed dose. Prior to coming to the hospital, he was not taki ng regular medicines it sounds like. REVIEW OF SYSTEMS: He denies fever or chills. No focal numbness or weakness. He says he does not feel confused. EXAM: GENERAL: Well developed, in no acute distress. He woke up from sleep and was able to commun icate with me effectively. He has a generally flattened affect and is able to speak calmly and appr opriately, asking questions about when he might be able to get out of the hospital. He lacks insigh t about exactly what has happened. He says he just wants to get out of the hospital and start jules ramos on his business again and mentions his concern about his and taking care of the dog and his responsibilities to family. I asked him about how he would describe his personality in general and he said that he usually laid back, but then said sometimes he has more than 1 personality and his pe rsonalities can change sometimes. He is denying feeling acutely depressed or suicidal or homicidal. He was able to tell me a little bit about his history, but lacks some details. HEENT: Pupils are 3 mm and reactive. Extraocular movements are intact. Normal facial sensation and strength. Palat e elevates symmetrically and tongue protrudes midline. NEUROLOGIC: Motor exam, normal muscle bulk and tone with 5/5 strength. Although he moves a little bit slowly, it is not the state of parkinson ism. No tremor. His gait is a little slow, but steady. I have reviewed his diagnostic studies. His CBC is unremarkable. Normal INR. Electrolytes are esse ntially normal with mild elevation of LDL cholesterol at 134. Urinalysis unremarkable. CSF showed no white cells or red cells and normal protein and glucose with negative Lyme antibody so far, negat james antibody testing for HSV 1 and HSV 2. Oligoclonal bands are pending. He had lithium levels in the distant past, but none on the drug screen from November 15, 2016, in which other screens or substance s were negative. KAVITA is negative. There is an elevated complement 4A level and a normal complement 3A level. Cytologies received, but pending. I have reviewed the CT angiogram of the head and neck as well as head CT and brain MRI and there are no significant abnormalities evident. IMPRESSION: The patient has a history of bipolar illness and some history of possible substance abu se of which details are a bit unreliable at this stage. In the workup for a specific neurologic dis order such as seizures, stroke, or encephalitis, nothing has turned up positive. He is currently co mplaining of some headache and does not have a history of any chronic headache problems. There migh t have been some effect from the lumbar puncture with some mild low-pressure headache, but he has de scribed the headache as fairly mild now and not a major change when he gets up. As he is walking ar ound the unit or walking in his room, he is not complaining or showing evidence of severe headache s ymptoms or signs. Therefore, I think we can continue to treat that conservatively just by maintaini ng good hydration. He should follow up with Dr. Ed Nixon for outpatient neurology and review t he rest of his lab results once those are available with him. I will remain available as needed for consultative questions during hospitalization. I am happy to speak to anybody about his case if e patient grants the right to discuss his case with family. However, I will simply speak with the c onsulting physicians and the patient at this point, unless I hear otherwise. I do not recommend add ing any other medications from neurology standpoint. 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 However, stabili zation could certainly occur with appropriate medications and outpatient psychiatry followup, so I e ncouraged him to think positively about the future and working toward good goals. If there are prob lems with substance abuse, then he certainly needs to cease all use of psychoactive drugs like marij uana, cigarettes, alcohol and any stimulants. The only medications that would be appropriate at [facility] stage are his medications prescribed by Psychiatry. Today's total unit time with [id number] discussion being greater than 50% is 55 minutes. /[id number]/MODL
[2016-11-21] MEDS: OLANZapine DISINTEGR 5 MG TAB PO SCH ×2 (08:46→19:15)
[2016-11-21] MEDS: LORazepam 1 MG TAB PO SCH ×2 (08:46→19:15)
[2016-11-21] MEDS: IBUPROFEN 800 MG TAB PO PRN (11:42)
--- NOTE | 2016-11-21 16:46 | SOAPPROG ---
SOAP Progress Note Assessment/Plan: Assessment: Plan: 11/20/16 13:07 Remains psychotic. No clear catatonia at this point, though he is disorganized. Will therefore continue Zyprexa for now, monitor closely for signs of catatonia. 11/21/16 16:47 Remains disorganized and uninsightful. Will [facility], monitor. Subjective: Pt seen, discussed with staff. Appreciate Dr. Christianson' help. Pt reports h/a is better today, slept well last night. Angry when I discuss his STC with him. I reviewed the criteria to allow him to d/c and remove the STC inc: normalization of his thinking, stabilization of perceptions and interpretations. He has little to no insight into this, stating he is fine and needs to return to work immediately. Becomes upset and hostile when I try to explain that he needs to normalize his thinking and mood prior to d/c. Objective: Vital Signs Temp Pulse Resp BP Pulse Ox 36.6 C 72 14 131/72 H 94 11/21/16 01:50 11/21/16 01:50 11/21/16 01:50 11/21/16 01:50 11/21/16 01:50 MSE: Marginally groomed, guarded, hostile. Affect is constricted, angry. Mood is "bad." TP disorganized with prominent blocking and derailment. TC reveals poor reality testing, poor I/J and paranoia. - Time Spent With Patient Time Spent With Patient: 25" - Pending Discharge Pending Discharge Within 24 Hours: No Pending Discharge Within 48 Hours: No ICD10 Worksheet Patient Problems: Problems Problem Status Onset Aphasia Acute
[2016-11-21] MEDS: ACETAMINOPHEN 325 MG TAB PO PRN (19:19)
[2016-11-22] MEDS: LORazepam 1 MG TAB PO SCH ×2 (09:02→21:11)
[2016-11-22] MEDS: OLANZapine DISINTEGR 5 MG TAB PO SCH ×2 (09:03→21:11)
[2016-11-22] MEDS: IBUPROFEN 800 MG TAB PO PRN (09:03)
--- NOTE | 2016-11-22 15:53 | SOAPPROG ---
SOAP Progress Note Assessment/Plan: Assessment: Plan: 11/20/16 13:07 Remains psychotic. No clear catatonia at this point, though he is disorganized. Will therefore continue Zyprexa for now, monitor closely for signs of catatonia. 11/21/16 16:47 Remains disorganized and uninsightful. Will [facility], monitor. 11/22/16 15:52 Perhaps better. Remains disorganized. Will [facility], monitor. Subjective: Pt seen, discussed with staff. Remains disorganized. Unable to dial phone earlier with staff help. Struggles to discuss treatment in a reasonable manner. He continues to perseverate on need to go back to work. He acknowledges having "brain problems" but states, "Everyone does. You do. It's normal. No one's perfect." Slept well last night. Objective: Vital Signs Temp Pulse Resp BP Pulse Ox 36.5 C 78 14 128/67 H 97 11/22/16 06:12 11/22/16 06:12 11/22/16 06:12 11/22/16 06:12 11/22/16 06:12 MSE: Calm and interactive at first. Becomes angry and hostile, shouting and swearing later in interview. Affect is blunted. Mood is "terrible." TP disorganized. TC reveals paranoia. Denies A/V/T halluc's. - Time Spent With Patient Time Spent With Patient: 25" - Pending Discharge Pending Discharge Within 24 Hours: No ICD10 Worksheet Patient Problems: Problems Problem Status Onset Aphasia Acute
[2016-11-23 06:21] VITALS: RESP 14; TEMP 97.4
[2016-11-23] MEDS: LORazepam 1 MG TAB PO SCH ×2 (08:43→20:58)
[2016-11-23] MEDS: OLANZapine DISINTEGR 5 MG TAB PO SCH ×2 (08:44→20:58)
--- NOTE | 2016-11-23 15:32 | SOAPPROG ---
SOAP Progress Note Assessment/Plan: Assessment: Plan: 11/20/16 13:07 Remains psychotic. No clear catatonia at this point, though he is disorganized. Will therefore continue Zyprexa for now, monitor closely for signs of catatonia. 11/21/16 16:47 Remains disorganized and uninsightful. Will [facility], monitor. 11/22/16 15:52 Perhaps better. Remains disorganized. Will [facility], monitor. 11/23/16 15:32 Slowly improving. Remains disorganized, paranoid. CCM. Subjective: Pt seen, discussed with staff. Less hostile today, able to laugh and joke appropriately. Continues to state he has no psychiatric problems and needs to go home. Compliant with meds. Staff notes him to remain disorganized, often sitting and staring blankly. Struggles to interact with others due to ongoing disorganization. Objective: Vital Signs Temp Pulse Resp BP Pulse Ox 36.3 C 71 14 114/61 97 11/23/16 06:19 11/23/16 06:19 11/23/16 06:19 11/23/16 06:19 11/23/16 06:19 MSE: Calm, coop. Affect is blunted, stable. Mood is "OK." TP is disorganized. He can initiate thoughts and statements, but then derails. TC reveals paranoia, stating we are detaining him illegally. No evidence of perceptual disturbances. - Time Spent With Patient Time Spent With Patient: 25" - Pending Discharge Pending Discharge Within 24 Hours: No Pending Discharge Within 48 Hours: No ICD10 Worksheet Patient Problems: Problems Problem Status Onset Aphasia Acute
[2016-11-24 06:26] VITALS: BP 124/61; PULSE 75; O2SAT 95
[2016-11-24] MEDS: LORazepam 1 MG TAB PO SCH (08:08)
[2016-11-24] MEDS: OLANZapine DISINTEGR 5 MG TAB PO SCH (08:09)
== END 2016-11-24 15:45 | disposition home or self-care (01) | DRG 885 ==
LOC: BBEH 18:50
PROVIDERS: ADMIT Psychiatry & Neurology Behavioral Neurology & Neuropsychiatry; ATTEND Psychiatry & Neurology Behavioral Neurology & Neuropsychiatry
DX: F31.9 Bipolar disorder, unspecified (principal); F12.90 Cannabis use, unspecified, uncomplicated

== ENCOUNTER 2017-05-11 11:38 | Emergency (ER) | payer MEDICAID, OTHER ==
[2017-05-11 11:44] VITALS: RESP 16
[2017-05-11 12:42] LABS: ADD DIFF? NO; ADD MORPH? NO; ADD SCAN? NO; ATYPICAL LYMPHOCYTE FLAG 30 (0-99); FRAGMENT RBC FLAG 0 (0-99); HEMATOCRIT 43.2 % (40.0-51.0); HEMOGLOBIN 14.8 g/dL (13.7-17.5); LEFT SHIFT FLG 0 (0-99); LIPEMIA HEMOLYSIS FLAG 90 (0-99); MEAN CELL HEMOGLOBIN 29.2 pg (27.9-34.1); MEAN CELL HEMOGLOBIN CONCENTR. 34.3 g/dL (32.4-36.7); MEAN CELL VOLUME 85.4 fL (81.5-99.8); MEAN PLATELET VOLUME 9.9 fL (8.7-11.7); PLATELET CLUMPS FLAG 0 (0-99); PLATELET COUNT 241 10^3/uL (150-400); RED BLOOD CELL COUNT 5.06 10^6/uL (4.40-6.38); RED CELL DISTRIBUTION WIDTH 14.3 % (11.5-15.2)
[2017-05-11] MEDS ORDERED: KETOROLAC 30 MG/1 ML SDV IVP ONE (12:53)
[2017-05-11] MEDS ORDERED: NS 1,000 ML IV ONE (12:53)
--- NOTE | 2017-05-11 12:56 | EDPHY ---
H & P Stated Complaint: Diarrhea for 7 days, increased RLQ pain. On anti bx for recent surgery Time Seen by Provider: 05/11/17 12:41 HPI/ROS: CHIEF COMPLAINT: Diarrhea, right lower quadrant pain HISTORY OF PRESENT ILLNESS: The patient is a 36-year-old man who comes to the emergency department complaining of diarrhea for the last 5 days and now right lower quadrant and bilateral flank pain. He is concerned about C diff. He had septoplasty 2 weeks ago and was placed on a 5 day course of clindamycin and Percocet. He does have a history of cocaine, heroin and cannabis abuse. He also has a history of bipolar disorder with catatonic features. He states that soon as he finished the clindamycin he developed diarrhea although he is only having about 1 bowel movement each day but it is very watery. Nonbloody. He has not had a fever. He has crampy pain and now it is focused in the right lower quadrant. No vomiting or nausea. He has been able to eat and drink easily. REVIEW OF SYSTEMS: Constitutional: denies: chills, fever, recent illness, recent injury EENTM: denies: blurred vision, double vision, nose congestion Respiratory: denies: cough, shortness of breath Cardiac: denies: chest pain, irregular heart rate, lightheadedness, palpitations Gastrointestinal/Abdominal: See HPI Genitourinary: denies: dysuria, frequency, hematuria, pain Musculoskeletal: See HPI Skin: denies: lesions, rash, jaundice, bruising Neurological: denies: headache, numbness, paresthesia, tingling, dizziness, weakness Hematologic/Lymphatic: denies: blood clots, easy bleeding, easy bruising Immunologic/allergic: denies: HIV/AIDS, transplant EXAM: GENERAL: Well-appearing, well-nourished and in no acute distress. HEAD: Atraumatic, normocephalic. EYES: Pupils equal round and reactive to light, extraocular movements intact, sclera anicteric, conjunctiva are normal. ENT: TMs normal, nares patent, oropharynx clear without exudates. Moist mucous membranes. NECK: Normal range of motion, supple without lymphadenopathy or JVD. LUNGS: Breath sounds clear to auscultation bilaterally and equal. No wheezes rales or rhonchi. HEART: Regular rate and rhythm without murmurs, rubs or gallops. ABDOMEN: Soft, nontender, normoactive bowel sounds. No guarding, no rebound. No masses appreciated. BACK: No CVA tenderness, no spinal tenderness, step-offs or deformities EXTREMITIES: Normal range of motion, no pitting or edema. No clubbing or cyanosis. NEUROLOGICAL: Cranial nerves II through XII grossly intact. Normal speech, normal gait. 5/5 strength, normal movement in all extremities, normal sensation PSYCH: Normal mood, normal affect. SKIN: Warm, dry, normal turgor, no visible rashes or lesions. Source: Patient Exam Limitations: No limitations - Personal History Current Tetanus Diphtheria and Acellular Pertussis (TDAP): Yes - Medical/Surgical History Hx Asthma: No Hx Chronic Respiratory Disease: No Hx Diabetes: No Hx Cardiac Disease: No Hx Renal Disease: No Hx Cirrhosis: No Hx Alcoholism: No Hx HIV/AIDS: No Hx Splenectomy or Spleen Trauma: No Other PMH: Bipolar with catatonic features, cannabis, cocaine and heroin abuse - Family History Significant Family History: No pertinent family hx - Social History Smoking Status: Never smoked Alcohol Use: Occasionally Drug Use: Cocaine, Heroin, Marijuana Constitutional: Initial Vital Signs Temperature (C) 36.7 C 05/11/17 11:40 Heart Rate 78 05/11/17 11:40 Respiratory Rate 16 05/11/17 11:40 Blood Pressure 114/88 H 05/11/17 11:40 O2 Sat (%) 99 05/11/17 11:40 O2 Delivery Mode Room Air Allergies/Adverse Reactions: cefaclor [From Ceclor] Allergy (Verified 01/25/10 20:47) Home Medications: Medication Instructions Recorded Clindamycin 05/11/17 Medical Decision Making - Diagnostics Imaging Results: Imaging Impressions Abdomen CT 05/11/17 12:53 Impression: 1. No acute findings in the abdomen or pelvis. 2. Moderate stool in the colon. 3. Additional findings as above. Findings discussed with Dr. Ed Ortiz on May 11, 2017 at 1338 hours. Imaging: Discussed imaging studies w/ call center manager Radiologist ED Course/Re-evaluation: 4 p.m. I had a very long discussion with the patient about his overall health. He is feeling much better. I will refer him to GI. His tests are reassuring. His abdominal exam is benign. He told me that he wants to start exercising and stop doing drugs the thinks that this will help a lot with his chronic fatigue and trouble sleeping. We discussed psychotropic medications. He states that these to help him sleep better but make him extremely fatigued throughout the day. He does not feel that they help. He is grateful and declines further workup or testing at this time. Differential Diagnosis: Partial list of the Differential diagnosis considered include but were not limited to; diarrhea, C difficile, appendicitis and although unlikely based on the history and physical exam, I also considered urinary tract infection, kidney stone, influenza,. I discussed these differential diagnoses and the plan with the patient as well as the usual and expected course. The patient understands that the diagnosis is provisional and that in medicine we are not always correct and that further workup is often warranted. Usual and customary warnings were given. All of the patient's questions were answered. The patient was instructed to return to the emergency department should the symptoms at all worsen or return, otherwise to followup with the physician as we discussed. - Data Points Laboratory Results: Laboratory Results 05/11/17 12:32 05/11/17 12:32 05/11/17 05/11/17 05/11/17 13:45 13:45 12:32 WBC RBC Hgb Hct MCV MCH MCHC RDW Plt Count MPV Neut % (Auto) Lymph % (Auto) [place] % (Auto) Eos % (Auto) Baso % (Auto) Nucleat RBC Rel Count Absolute Neuts (auto) Absolute Lymphs (auto) Absolute Monos (auto) Absolute Eos (auto) Absolute Basos (auto) Absolute Nucleated RBC Immature Gran % Immature Gran # Sodium 143 mEq/L mEq/L (134-144) Potassium 4.1 mEq/L mEq/L (3.5-5.2) Chloride 104 mEq/L mEq/L (97-110) Carbon Dioxide 28 mEq/l mEq/l (22-31) Anion Gap 11 mEq/L mEq/L (8-16) BUN 11 mg/dL mg/dL (7-23) Creatinine 1.0 mg/dL mg/dL (0.7-1.3) Estimated GFR > 60 Glucose 78 mg/dL mg/dL (70-100) Calcium 9.5 mg/dL mg/dL (8.5-10.4) Total Bilirubin 1.8 mg/dL H mg/dL (0.1-1.4) Conjugated Bilirubin 0.1 mg/dL mg/dL (0.0-0.5) Unconjugated Bilirubin 1.7 mg/dL H mg/dL (0.0-1.1) AST 20 IU/L IU/L (17-59) ALT 46 IU/L IU/L (21-72) Alkaline Phosphatase 51 IU/L IU/L (38-126) Total Protein 7.0 g/dL g/dL (6.3-8.2) Albumin 4.3 g/dL g/dL (3.5-5.0) Lipase 237 IU/L IU/L (23-300) Urine Color PALE YELLOW Urine Appearance CLEAR Urine pH 7.0 (5.0-7.5) Ur Specific [place] 1.011 (1.002-1.030) Urine Protein NEGATIVE (NEGATIVE) Urine Ketones NEGATIVE (NEGATIVE) Urine Blood NEGATIVE (NEGATIVE) Urine Nitrate NEGATIVE (NEGATIVE) Urine Bilirubin NEGATIVE (NEGATIVE) Urine Urobilinogen NEGATIVE EU EU (0.2-1.0) Ur Leukocyte Esterase NEGATIVE (NEGATIVE) Urine RBC NONE SEEN /hpf /hpf (0-3) Urine WBC NONE SEEN /hpf /hpf (0-3) Ur Epithelial Cells NONE SEEN /lpf /lpf (NONE-1+) Urine Mucus TRACE /lpf /lpf (NONE-1+) Urine Glucose NEGATIVE (NEGATIVE) C. difficile Tox (PCR) NEGATIVE (NEGATIVE) 05/11/17 12:32 WBC 3.09 10^3/uL L 10^3/uL (3.80-9.50) RBC 5.06 10^6/uL 10^6/uL (4.40-6.38) Hgb 14.8 g/dL g/dL (13.7-17.5) Hct 43.2 % % (40.0-51.0) MCV 85.4 fL fL (81.5-99.8) MCH 29.2 pg pg (27.9-34.1) MCHC 34.3 g/dL g/dL (32.4-36.7) RDW 14.3 % % (11.5-15.2) Plt Count 241 10^3/uL 10^3/uL (150-400) MPV 9.9 fL fL (8.7-11.7) Neut % (Auto) 43.1 % % (39.3-74.2) Lymph % (Auto) 47.2 % H % (15.0-45.0) [place] % (Auto) 6.5 % % (4.5-13.0) Eos % (Auto) 2.6 % % (0.6-7.6) Baso % (Auto) 0.6 % % (0.3-1.7) Nucleat RBC Rel Count 0.0 % % (0.0-0.2) Absolute Neuts (auto) 1.33 10^3/uL L 10^3/uL (1.70-6.50) Absolute Lymphs (auto) 1.46 10^3/uL 10^3/uL (1.00-3.00) Absolute Monos (auto) 0.20 10^3/uL L 10^3/uL (0.30-0.80) Absolute Eos (auto) 0.08 10^3/uL 10^3/uL (0.03-0.40) Absolute Basos (auto) 0.02 10^3/uL 10^3/uL (0.02-0.10) Absolute Nucleated RBC 0.00 10^3/uL 10^3/uL (0-0.01) Immature Gran % 0.0 % % (0.0-1.1) Immature Gran # 0.00 10^3/uL 10^3/uL (0.00-0.10) Sodium Potassium Chloride Carbon Dioxide Anion Gap BUN Creatinine Estimated GFR Glucose Calcium Total Bilirubin Conjugated Bilirubin Unconjugated Bilirubin AST ALT Alkaline Phosphatase Total Protein Albumin Lipase Urine Color Urine Appearance Urine pH Ur Specific [place] Urine Protein Urine Ketones Urine Blood Urine Nitrate Urine Bilirubin Urine Urobilinogen Ur Leukocyte Esterase Urine RBC Urine WBC Ur Epithelial Cells Urine Mucus Urine Glucose C. difficile Tox (PCR) Medications Given: Discontinued Medications Sodium Chloride (Ns) 1,000 mls @ 0 mls/hr IV EDNOW ONE; Wide Open PRN Reason: Protocol Stop: 05/11/17 12:54 Last Admin: 05/11/17 13:05 Dose: 1,000 mls Ketorolac Tromethamine (Toradol) 30 mg IVP EDNOW ONE Stop: 05/11/17 12:54 Last Admin: 05/11/17 13:06 Dose: 30 mg Departure - Departure Disposition: Home, Routine, Self-Care Clinical Impression: Diarrhea Qualifiers: Diarrhea type: unspecified type Qualified Code(s): R19.7 - Diarrhea, unspecified Condition: Fair Instructions: Acute Diarrhea (ED) Referrals: NONE *PRIMARY CARE P,. [Primary Care Provider] - As per Instructions Stevie Horton MD [Medical Doctor] - As per Instructions Olvin Ball DO [Medical Doctor] - As per Instructions
[2017-05-11] MEDS ORDERED: IOPAMIDOL (ISOVUE-300) 100 ML BTL ONE (12:57)
[2017-05-11 12:59] LABS: ANION GAP 11 mEq/L (8-16); CALCIUM 9.5 mg/dL (8.5-10.4); CARBON DIOXIDE 28 mEq/l (22-31); CHLORIDE 104 mEq/L (97-110); GLOMERULAR FILTRATION RATE > 60; GLUCOSE 78 mg/dL (70-100); POTASSIUM 4.1 mEq/L (3.5-5.2); SODIUM 143 mEq/L (134-144)
[2017-05-11 13:09] LABS: ALANINE AMINOTRANSFERASE 46 IU/L (21-72); ALBUMIN 4.3 g/dL (3.5-5.0); ALKALINE PHOSPHATASE 51 IU/L (38-126); ASPARTATE AMINOTRANSFERASE 20 IU/L (17-59); BILIRUBIN-UNCONJUGATED 1.7 mg/dL (0.0-1.1)
[2017-05-11 13:21] LABS: BILIRUBIN,TOTAL 1.8 mg/dL (0.1-1.4); BILIRUBIN-CONJUGATED 0.1 mg/dL (0.0-0.5)
[2017-05-11 14:07] LABS: COLOR PALE YELLOW; LEUKOCYTE ESTERASE,URINE NEGATIVE (NEGATIVE); NITRITE,URINE NEGATIVE (NEGATIVE)
[2017-05-11 14:21] LABS: MUCUS TRACE /lpf (NONE-1+)
[2017-05-11 14:22] LABS: RBC,URINE NONE SEEN /hpf (0-3); WBC,URINE NONE SEEN /hpf (0-3)
[2017-05-11 16:09] VITALS: O2SAT 96
[2017-05-11 16:15] VITALS: BP 116/64; PULSE 68; TEMP 98.2
== END 2017-05-11 16:22 | disposition home or self-care (01) ==
DX: R19.7 Diarrhea, unspecified (principal); E86.9 Volume depletion, unspecified
CPT/HCPCS: 74177; 96361; 96374; 99285; J1885; Q9967